=== PATIENT | male | born 1935 | race Caucasian/White ===

== ENCOUNTER 2016-12-29 11:21 | Outpatient (CLI) | payer MEDICARE, OTHER | END 2016-12-29 23:59 | DX: E11.9 Type 2 diabetes mellitus without complications (principal) ==

== ENCOUNTER 2017-01-09 | Outpatient (CLI) | payer SELFPAY | END 2017-01-09 03:15 | disposition EMS.NT | DX: R53.1 Weakness (principal) ==

== ENCOUNTER 2017-01-09 | Outpatient (CLI) | payer MEDICARE, BC, OTHER | END 2017-01-09 05:33 | disposition critical access hospital (66) | DX: R53.1 Weakness (principal) | CPT/HCPCS: A0425; A0427 ==

== ENCOUNTER 2017-01-09 06:00 | Inpatient (IN) | payer MEDICARE, BC ==
[2017-01-09] MEDS ORDERED: SODIUM CHLORIDE 0.9% 1,000 ML IV ONE ×2 (07:18→08:39)
[2017-01-09] MEDS ORDERED: FUROSEMIDE 40 MG/4 ML VIAL IVP STA (07:32)
[2017-01-09] MEDS ORDERED: FUROSEMIDE 40 MG/4 ML VIAL ONE (07:34)
[2017-01-09] MEDS: SODIUM CHLORIDE 0.9% 1,000 ML IV ONE ×2 (07:55→10:40)
[2017-01-09] MEDS ORDERED: SODIUM CHLORIDE FLUSH 0.9% 10 ML SYRINGE IVP PRN (08:39)
[2017-01-09] MEDS ORDERED: ACETAMINOPHEN 325 MG TABLET PO PRN (08:39)
[2017-01-09] MEDS ORDERED: PROCHLORPERAZINE 10 MG/2 ML VIAL IVP PRN (08:39)
[2017-01-09] MEDS ORDERED: ONDANSETRON 4 MG/2 ML VIAL IVP PRN (08:39)
[2017-01-09] MEDS ORDERED: DEXTROSE 5% 1,000 ML IV PRN (11:11)
[2017-01-09] MEDS ORDERED: DEXTROSE GEL 37.5 GM TUBE PO PRN (11:11)
[2017-01-09] MEDS ORDERED: DEXTROSE 50% ABBOJECT 25 GM/50 ML SYRINGE IVP PRN (11:11)
[2017-01-09] MEDS ORDERED: GLUCAGON 1 MG/ML VIAL SUBQ PRN (11:11)
[2017-01-09] MEDS: SODIUM BICARBONATE 150 MEQ in DEXTROSE 5% 1,000 ML IV SCH ×2 (12:13→21:28)
[2017-01-09] MEDS: INSULIN GLARGINE 300 UNIT/3 ML PEN SUBQ SCH ×2 (13:25→21:14)
[2017-01-09] MEDS: SODIUM CHLORIDE FLUSH 0.9% 10 ML SYRINGE IVP SCH ×2 (13:26→21:26)
[2017-01-09] MEDS: HEPARIN 5,000 UNIT/ML VIAL SUBQ SCH ×2 (13:26→21:15)
[2017-01-09] MEDS: INSULIN ASPART 300 UNIT/3 ML PEN SUBQ SCH ×3 (13:26→21:14)
[2017-01-09] MEDS: TAMSULOSIN 0.4 MG CAPSULE PO SCH (13:26)
[2017-01-09] MEDS: CALCIUM ACETATE 667 MG CAPSULE PO SCH ×2 (13:26→17:38)
[2017-01-09] MEDS: POLYETHYLENE GLYCOL 3350 17 GM PACKET PO SCH (13:36)
[2017-01-09] MEDS: LEVOTHYROXINE 75 MCG TABLET PO SCH (17:38)
[2017-01-09] MEDS: oxyCODONE 5 MG TABLET PO PRN (20:26)
[2017-01-10] MEDS: oxyCODONE 5 MG TABLET PO PRN ×3 (02:06→16:44)
[2017-01-10] MEDS: SODIUM CHLORIDE FLUSH 0.9% 10 ML SYRINGE IVP SCH ×3 (06:09→21:11)
[2017-01-10] MEDS ORDERED: LEVOTHYROXINE 25 MCG TABLET PO SCH (07:00)
[2017-01-10] MEDS: SODIUM CHLORIDE 0.9% 1,000 ML IV SCH ×2 (08:47→16:41)
[2017-01-10] MEDS: PANTOPRAZOLE 40 MG TABLET PO SCH (09:34)
[2017-01-10] MEDS: LEVOTHYROXINE 75 MCG TABLET PO SCH (09:34)
[2017-01-10] MEDS: INSULIN ASPART 300 UNIT/3 ML PEN SUBQ SCH ×4 (09:35→21:10)
[2017-01-10] MEDS: CALCIUM ACETATE 667 MG CAPSULE PO SCH ×3 (09:35→18:24)
[2017-01-10] MEDS: POLYETHYLENE GLYCOL 3350 17 GM PACKET PO SCH (09:36)
[2017-01-10] MEDS: TAMSULOSIN 0.4 MG CAPSULE PO SCH (09:37)
[2017-01-10] MEDS: HEPARIN 5,000 UNIT/ML VIAL SUBQ SCH ×2 (09:39→21:09)
[2017-01-10] MEDS: INSULIN GLARGINE 300 UNIT/3 ML PEN SUBQ SCH ×2 (09:44→21:09)
[2017-01-10] MEDS ORDERED: MIN OIL/DIMETHICON/COCONUT OIL 92 GM TUBE TOP ONE (14:13)
[2017-01-11] MEDS: SODIUM CHLORIDE 0.9% 1,000 ML IV SCH ×3 (00:42→17:07)
[2017-01-11] MEDS: oxyCODONE 5 MG TABLET PO PRN ×5 (00:42→21:30)
[2017-01-11] MEDS: LEVOTHYROXINE 75 MCG TABLET PO SCH (06:11)
[2017-01-11] MEDS: PANTOPRAZOLE 40 MG TABLET PO SCH (06:12)
[2017-01-11] MEDS: SODIUM CHLORIDE FLUSH 0.9% 10 ML SYRINGE IVP SCH ×3 (06:13→21:32)
[2017-01-11] MEDS: CALCIUM ACETATE 667 MG CAPSULE PO SCH ×3 (08:10→17:00)
[2017-01-11] MEDS: POLYETHYLENE GLYCOL 3350 17 GM PACKET PO SCH (08:11)
[2017-01-11] MEDS: DOCUSATE SODIUM 250 MG CAPSULE PO SCH (08:11)
[2017-01-11] MEDS: SENNA 8.6 MG TABLET PO SCH (08:11)
[2017-01-11] MEDS: TAMSULOSIN 0.4 MG CAPSULE PO SCH (08:11)
[2017-01-11] MEDS: INSULIN ASPART 300 UNIT/3 ML PEN SUBQ SCH ×4 (08:14→21:31)
[2017-01-11] MEDS: INSULIN GLARGINE 300 UNIT/3 ML PEN SUBQ SCH ×2 (08:15→21:32)
[2017-01-11] MEDS: HEPARIN 5,000 UNIT/ML VIAL SUBQ SCH ×2 (08:19→21:31)
[2017-01-12] MEDS: SODIUM CHLORIDE 0.9% 1,000 ML IV SCH ×2 (00:03→08:53)
[2017-01-12] MEDS: oxyCODONE 5 MG TABLET PO PRN (03:06)
[2017-01-12] MEDS: SODIUM CHLORIDE FLUSH 0.9% 10 ML SYRINGE IVP SCH (06:26)
[2017-01-12] MEDS: LEVOTHYROXINE 75 MCG TABLET PO SCH (06:43)
[2017-01-12] MEDS: PANTOPRAZOLE 40 MG TABLET PO SCH (06:43)
[2017-01-12] MEDS: INSULIN ASPART 300 UNIT/3 ML PEN SUBQ SCH (08:25)
[2017-01-12] MEDS: DOCUSATE SODIUM 250 MG CAPSULE PO SCH (08:44)
[2017-01-12] MEDS: CALCIUM ACETATE 667 MG CAPSULE PO SCH (08:44)
[2017-01-12] MEDS: POLYETHYLENE GLYCOL 3350 17 GM PACKET PO SCH (08:51)
[2017-01-12] MEDS: SENNA 8.6 MG TABLET PO SCH (08:51)
[2017-01-12] MEDS: TAMSULOSIN 0.4 MG CAPSULE PO SCH (08:52)
[2017-01-12] MEDS: HEPARIN 5,000 UNIT/ML VIAL SUBQ SCH (08:54)
[2017-01-12] MEDS ORDERED: MAGNESIUM HYDROXIDE 2,400 MG/30 ML UDC PO ONE (09:00)
[2017-01-12] MEDS: INSULIN GLARGINE 300 UNIT/3 ML PEN SUBQ SCH (11:01)
== END 2017-01-12 15:50 | DRG 683 ==
DX: N17.9 Acute kidney failure, unspecified (principal); I10 Essential (primary) hypertension; E11.42 Type 2 diabetes mellitus with diabetic polyneuropathy; Z79.84 Long term (current) use of oral hypoglycemic drugs; E87.2 Acidosis; E83.39 Other disorders of phosphorus metabolism; E11.22 Type 2 diabetes mellitus with diabetic chronic kidney disease; I12.9 Hypertensive chronic kidney disease with stage 1 through stage 4 chronic kidney disease, or unspecified chronic kidney disease; E03.9 Hypothyroidism, unspecified; I48.91 Unspecified atrial fibrillation; R94.5 Abnormal results of liver function studies; Z85.6 Personal history of leukemia; Z92.21 Personal history of antineoplastic chemotherapy; Z85.038 Personal history of other malignant neoplasm of large intestine; E78.1 Pure hyperglyceridemia; N18.2 Chronic kidney disease, stage 2 (mild); Z79.4 Long term (current) use of insulin; Z87.891 Personal history of nicotine dependence

== ENCOUNTER 2017-01-12 | Outpatient (CLI) | payer MEDICARE, BC | END 2017-01-12 15:52 | DX: Z74.01 Bed confinement status (principal) | CPT/HCPCS: A0425; A0429 ==

== ENCOUNTER 2017-03-16 12:00 | Outpatient (CLI) | payer BC, MEDICARE, OTHER | END 2017-03-16 12:01 | DX: N39.0 Urinary tract infection, site not specified (principal) ==

== ENCOUNTER 2017-05-25 13:00 | Outpatient (CLI) | payer MEDICARE ==
[2017-05-25 18:48] LABS: HGB - HEMOGLOBIN 10.3 g/dL (14.0-18.0); MEAN CORPUSCULAR HEMOGLOBIN 28.5 pg (27.0-31.0); MEAN CORPUSCULAR HGB CONC 33.3 g/dL (32.0-36.0); MEAN CORPUSCULAR VOLUME 85.4 fL (80.0-94.0); MEAN PLATELET VOLUME 7.2 fL (7.4-11.4); RED BLOOD COUNT 3.63 10^6/uL (4.70-6.10); RED CELL DISTRIBUTION WIDTH 17.9 % (12.0-15.0); WHITE BLOOD COUNT 4.1 x10^3/uL (4.8-10.8)
[2017-05-25 18:58] LABS: CALCIUM 8.7 mg/dL (8.5-10.3); CREATININE 1.1 mg/dL (0.6-1.2); POTASSIUM 4.2 mmol/L (3.5-5.0)
== END 2017-05-25 13:01 ==
LOC: LAB.F 13:00
PROVIDERS: ATTEND Internal Medicine
DX: L03.119 Cellulitis of unspecified part of limb (principal)
CPT/HCPCS: 80048

== ENCOUNTER 2017-09-02 18:00 | Outpatient (CLI) | payer MEDICARE | END 2017-09-02 18:01 | disposition critical access hospital (66) | LOC: EMS 18:00 | PROVIDERS: ATTEND Surgery | DX: L97.519 Non-pressure chronic ulcer of other part of right foot with unspecified severity (principal) | CPT/HCPCS: A0425; A0429 ==

== ENCOUNTER 2017-09-02 18:24 | Emergency (ER) | payer MEDICARE ==
--- NOTE | 2017-09-02 19:42 | XRAY Preliminary Report ---
Exam: XR FOOT 2 VIEW BILAT IMPRESSION: 1. No acute fracture. 2. Normal alignment. 3. No radiographic findings concerning for osteomyelitis. 4. Diffuse soft tissue swelling. No radiopaque foreign bodies. [facility] SITE ID: [id number]
[2017-09-02 19:49] LABS: BASOPHILS % (AUTO) 0.5 %; EOSINOPHILS # (AUTO) 0.1 10^3/uL (0.0-0.7); EOSINOPHILS % (AUTO) 2.7 %; HCT - HEMATOCRIT 31.7 % (42.0-52.0); HGB - HEMOGLOBIN 10.7 g/dL (14.0-18.0); LYMPHOCYTES # (AUTO) 0.8 10^3/uL (1.5-3.5); MEAN CORPUSCULAR HEMOGLOBIN 28.2 pg (27.0-31.0); MEAN CORPUSCULAR HGB CONC 33.9 g/dL (32.0-36.0); MEAN CORPUSCULAR VOLUME 83.2 fL (80.0-94.0); MEAN PLATELET VOLUME 6.9 fL (7.4-11.4); MONOCYTES # (AUTO) 0.4 10^3/uL (0.0-1.0); MONOCYTES % (AUTO) 10.4 %; NEUTROPHILS # (AUTO) 2.8 10^3/uL (1.5-6.6); NEUTROPHILS % (AUTO) 66.4 %; NUCLEATED RED BLOOD CELLS AUTO 0.1 /100WBC; RED BLOOD COUNT 3.81 10^6/uL (4.70-6.10); RED CELL DISTRIBUTION WIDTH 17.9 % (12.0-15.0); UNCORRECTED WHITE BLOOD COUNT 4.2 x10^3/uL; WHITE BLOOD COUNT 4.2 x10^3/uL (4.8-10.8)
--- NOTE | 2017-09-02 19:50 | XRAY Report ---
EXAMS: 1. RIGHT FOOT RADIOGRAPHY 2. LEFT FOOT RADIOGRAPHY EXAM DATE: 09/02/2017 07:20 p.m. CLINICAL HISTORY: Bilateral toe ulcerations, diabetic male. COMPARISON: None. TECHNIQUE: 2 views each foot. FINDINGS: Right: Bones: Normal. No fractures or bone lesions. Joints: Normal. No subluxations. Soft Tissues: Diffuse soft tissue swelling in the right foot. No radiopaque foreign bodies or subcuta neous emphysema. Patient's known ulcers are poorly visible. Possible ulcer at the distal portions of the right second toe. Left: Bones: No destructive osseous changes. Small plantar calcaneal spur. Joints: Normal. No subluxations. Soft Tissues: Diffuse soft tissue swelling throughout the left foot. No radiopaque foreign bodies or subcutaneous emphysema. IMPRESSION: 1. No acute fracture. 2. Normal alignment. 3. No radiographic findings concerning for osteomyelitis. 4. Diffuse soft tissue swelling. No radiopaque foreign bodies. [facility] Referring Provider Line: [phone] SITE ID: [id number]
[2017-09-02] MEDS ORDERED: SULFAMETH/TRIMETH DS 800/160 MG TABLET PO STA (19:53)
[2017-09-02] MEDS ORDERED: cefTRIAXone 1 GM VIAL IVP STA (19:53)
--- NOTE | 2017-09-02 19:55 | ED Physician Documentation ---
History of Present Illness - Stated complaint Stated Complaint: ULCERATED FEET - Chief complaint Chief Complaint: Wound - History obtained from History obtained from: Patient, EMS - History of Present Illness Timing: Chronic Pain level max: 0 Pain level now: 0 Improved by: nothing Worsened by: nothing - Additonal information Additional information: Patient is an 81-year-old male who presents to the emergency department after being sent in by his home health nurse. She is treating him for diabetic foot wounds and is concerned about his right second and third toes. States that they are more swollen than usual. No fevers. No chills. No vomiting. No dyspnea. Is not currently on antibiotics. Review of Systems Constitutional: denies: Fever, Chills Nose: denies: Rhinorrhea / runny nose, Congestion Throat: denies: Sore throat Cardiac: denies: Chest pain / pressure Respiratory: denies: Cough GI: denies: Abdominal Pain, Vomiting, Diarrhea Skin: denies: Rash Musculoskeletal: denies: Neck pain, Back pain Neurologic: denies: Focal weakness, Numbness, Headache PD PAST MEDICAL HISTORY - Past Medical History Past Medical History: Yes Cardiovascular: Hypertension, High cholesterol, Other Respiratory: Shortness of breath Neuro: Dementia, Peripheral neuropathy, Tremors Endocrine/Autoimmune: Type 2 diabetes, HyPOthyroidism GI: GERD : None HEENT: Chronic vision loss, Glaucoma, Chronic hearing loss Psych: None Musculoskeletal: None Derm: None - Past Surgical History Past Surgical History: Yes General: Appendectomy, Gastric surgery, Colonoscopy HEENT: Cataracts, Tonsil/Adenoidectomy - Present Medications Home Medications: Ambulatory Orders Medication Instructions Recorded Confirmed Fenofibrate [Tricor] 48 mg PO QD 05/31/13 01/09/17 Levothyroxine Sodium [Levoxyl] 75 mcg PO QDAC 06/18/16 01/09/17 Terazosin HCl 4 mg PO QPM 06/18/16 01/09/17 Atorvastatin Calcium [Lipitor] 80 mg PO QPM 01/10/17 01/10/17 Colchicine [Colchicine] 1.2 mg PO DAILY 01/10/17 01/10/17 Furosemide [Furosemide] 20 mg PO DAILY 01/10/17 01/10/17 Insulin Glargine [Lantus Solostar] 25 units SUBQ BID 01/10/17 01/10/17 Potassium Chloride [Klor-Con 10] 10 meq PO DAILY 01/10/17 01/10/17 Atorvastatin [Lipitor] 20 mg PO DAILY 09/02/17 09/02/17 Cephalexin [Keflex] 500 mg PO Q6HR #28 capsule 09/02/17 Insulin Aspart [NovoLOG] 09/02/17 Sulfamethox/Trimeth 800/160 1 each PO BID #14 tablet 09/02/17 [Bactrim Ds 800/160] Vit D 09/02/17 - Allergies Allergies/Adverse Reactions: Allergies Allergy/AdvReac Type Severity Reaction Status Date / Time iodine Allergy Rash Verified 09/02/17 18:35 andrographic paniculata Allergy Rash Uncoded 09/02/17 18:35 - Social History Does the pt smoke?: No Smoking Status: Never smoker Does the pt drink ETOH?: Yes Does the pt have substance abuse?: No - POLST Patient has POLST: No PD ED PE NORMAL - Vitals Vital signs reviewed: Yes - General General: Alert and oriented X 3, No acute distress - HEENT HEENT: Moist mucous membranes - Neck Neck: Supple, no meningeal sign - Cardiac Cardiac: RRR, Strong equal pulses - Respiratory Respiratory: No respiratory distress, Clear bilaterally - Abdomen Abdomen: Soft, Non tender, Non distended - Derm Derm: Warm and dry - Extremities Extremities: Other (Bilateral lower extremities are edematous, mild erythema and wounds to the dorsum of the right second and third toe. Vascularly intact, though neuropathy to bilateral lower extremity) - Neuro Neuro: Alert and oriented X 3 - Psych Psych: Normal mood, Normal affect Results - Vitals Vitals: Vital Signs - 24 hr 09/02/17 09/02/17 09/02/17 18:24 20:11 21:05 Temperature 36.8 C 37.2 C 36.8 C Heart Rate 110 H 96 88 Respiratory 22 18 18 Rate Blood Pressure 164/75 H 157/76 H 158/68 H O2 Saturation 95 98 97 Oxygen O2 Source Room air - Labs Labs: Laboratory Tests 09/02/17 09/02/17 09/02/17 19:30 19:30 19:30 WBC 4.2 L RBC 3.81 L Hgb 10.7 L Hct 31.7 L MCV 83.2 MCH 28.2 MCHC 33.9 RDW 17.9 H Plt Count 112 L MPV 6.9 L Neut # 2.8 Lymph # 0.8 L [place] # 0.4 Eos # 0.1 Baso # 0.0 Absolute Nucleated RBC 0.00 Nucleated RBC % 0.1 ESR 30 H Sodium 139 Potassium 3.6 Chloride 103 Carbon Dioxide 28 Anion Gap 8.0 BUN 15 Creatinine 1.2 Estimated GFR (MDRD) 58 L Glucose 102 H Calcium 8.6 Total Bilirubin 1.6 H AST < 10 L ALT < 10 L Alkaline Phosphatase 50 C-Reactive Protein 1.8 H Total Protein 5.5 L Albumin 3.1 L Globulin 2.4 Albumin/Globulin Ratio 1.3 Lipase 19 L - Rads (name of study) Bilateral foot x-ray Radiology: Prelim report reviewed, EMP read contemporaneously, See rad report ( No acute fracture. Normal alignment. No radiographic findings concerning for osteomyelitis. Diffuse soft tissue swelling. No radiopaque foreign bodies. ) PD MEDICAL DECISION MAKING - ED course Complexity details: reviewed results, re-evaluated patient, considered differential, d/w patient ED course: Patient is an 81-year-old male who appears to have cellulitis to the second and third toes, given Rocephin and Bactrim here. Will place on antibiotics for home. No evidence of osteomyelitis. No fevers. No sepsis. Patient is very well-appearing, nontoxic. Patient and family counseled regarding signs and symptoms for which I believe and urgent re-evaluation would be necessary. Patient with good understanding of and agreement to plan and is comfortable going home at this time This document was made in part using voice recognition software. While efforts are made to proofread this document, sound alike and grammatical errors may occur. Departure - Departure Disposition: 01 Home, Self Care Clinical Impression: Cellulitis Qualifiers: Site of cellulitis: extremity Site of cellulitis of extremity: toe Laterality: right Qualified Code(s): L03.031 - Cellulitis of right toe Diabetic foot ulcer Qualifiers: Diabetic foot ulcer location: unspecified part of foot Diabetes mellitus type: type 2 Laterality: right Non-pressure ulcer stage: limited to breakdown of skin Qualified Code(s): E11.621 - Type 2 diabetes mellitus with foot ulcer Condition: Good Instructions: ED Infec Skin Cellulitis Follow-Up: Rodrigo Van MD [Primary Care Provider] - Within 1 week Prescriptions: Cephalexin [Keflex] 500 mg PO Q6HR #28 capsule Sulfamethox/Trimeth 800/160 [Bactrim Ds 800/160] 1 each PO BID #14 tablet Comments: hold your potassium until finished with the antibiotics. Return if you worsen. Follow up with Dr. Van for further care. Discharge Date/Time: 09/02/17 21:06
[2017-09-02] MEDS ORDERED: cefTRIAXone 1 GM VIAL ONE (20:06)
[2017-09-02] MEDS ORDERED: SULFAMETH/TRIMETH DS 800/160 MG TABLET PO ONE (20:07)
[2017-09-02 20:19] LABS: ALBUMIN/GLOBULIN RATIO 1.3 (1.0-2.2); BILIRUBIN,TOTAL 1.6 mg/dL (0.2-1.0); BUN - BLOOD UREA NITROGEN 15 mg/dL (6-20); CALCIUM 8.6 mg/dL (8.5-10.3); CARBON DIOXIDE - CO2 28 mmol/L (21-32); CHLORIDE 103 mmol/L (101-111); CREATININE 1.2 mg/dL (0.6-1.2); GFR - MDRD 58 (>89); GLUCOSE 102 mg/dL (70-100); LIPASE 19 U/L (22-51); POTASSIUM 3.6 mmol/L (3.5-5.0); SODIUM 139 mmol/L (135-145); TOTAL PROTEIN 5.5 g/dL (6.7-8.2)
[2017-09-02 21:06] VITALS: BP 158/68
== END 2017-09-02 21:06 | disposition home or self-care (01) ==
LOC: EDUNIT# → ED 18:24
DX: L03.031 Cellulitis of right toe (principal); E11.621 Type 2 diabetes mellitus with foot ulcer; E11.42 Type 2 diabetes mellitus with diabetic polyneuropathy; I10 Essential (primary) hypertension; E78.00 Pure hypercholesterolemia, unspecified; E03.9 Hypothyroidism, unspecified; F03.90 Unspecified dementia, unspecified severity, without behavioral disturbance, psychotic disturbance, mood disturbance, and anxiety; Z79.4 Long term (current) use of insulin
CPT/HCPCS: 36415; 73620; 80053; 83690; 85025; 85651; 86140; 96374; 99284; A9270

== ENCOUNTER 2017-12-06 08:00 | Outpatient (CLI) | payer MEDICARE ==
[2017-12-06 17:25] LABS: BASOPHILS % (AUTO) 0.4 %; EOSINOPHILS # (AUTO) 0.1 10^3/uL (0.0-0.7); EOSINOPHILS % (AUTO) 2.8 %; HGB - HEMOGLOBIN 10.7 g/dL (14.0-18.0); LYMPHOCYTES # (AUTO) 0.6 10^3/uL (1.5-3.5); LYMPHOCYTES % (AUTO) 20.3 %; MEAN CORPUSCULAR HGB CONC 33.5 g/dL (32.0-36.0); MEAN CORPUSCULAR VOLUME 83.5 fL (80.0-94.0); MEAN PLATELET VOLUME 6.9 fL (7.4-11.4); MONOCYTES # (AUTO) 0.2 10^3/uL (0.0-1.0); MONOCYTES % (AUTO) 7.3 %; NEUTROPHILS % (AUTO) 69.2 %; PLT - PLATELET COUNT 120 10^3/uL (130-450); RED BLOOD COUNT 3.84 10^6/uL (4.70-6.10); RED CELL DISTRIBUTION WIDTH 17.8 % (12.0-15.0)
[2017-12-06 17:54] LABS: HB2 TOTAL 11.4 g/dL; HEMOGLOBIN A1C 0.33 g/dL; HEMOGLOBIN A1C % 4.8 % (4.6-6.2)
[2017-12-06 18:55] LABS: ALBUMIN 3.5 g/dL (3.2-5.5); ALBUMIN/GLOBULIN RATIO 1.7 (1.0-2.2); ALKALINE PHOSPHATASE 37 IU/L (42-121); ALT ALANINE AMINOTRANSFERASE < 10 IU/L (10-60); AST ASPARTATE AMINOTRANSFERASE < 10 IU/L (10-42); BILIRUBIN,TOTAL 1.3 mg/dL (0.2-1.0); BUN - BLOOD UREA NITROGEN 24 mg/dL (6-20); CALCIUM 8.7 mg/dL (8.5-10.3); CARBON DIOXIDE - CO2 25 mmol/L (21-32); CHLORIDE 105 mmol/L (101-111); CREATININE 1.3 mg/dL (0.6-1.2); GFR - MDRD 53 (>89); GLUCOSE 152 mg/dL (70-100); PREALBUMIN 21 mg/dL (18-45); SODIUM 136 mmol/L (135-145); TOTAL PROTEIN 5.6 g/dL (6.7-8.2)
== END 2017-12-06 08:01 | disposition home or self-care (01) ==
LOC: LAB.R 08:00
PROVIDERS: ATTEND Internal Medicine
DX: E46 Unspecified protein-calorie malnutrition (principal); E11.9 Type 2 diabetes mellitus without complications
CPT/HCPCS: 80053; 83036; 84134; 85025

== ENCOUNTER 2017-12-29 12:10 | Outpatient (CLI) | payer MEDICARE | END 2017-12-29 12:11 | disposition home or self-care (01) | LOC: LAB.R 12:10 | PROVIDERS: ATTEND Internal Medicine | DX: L97.821 Non-pressure chronic ulcer of other part of left lower leg limited to breakdown of skin (principal) | CPT/HCPCS: 87070; 87205 ==

== ENCOUNTER 2018-03-14 08:00 | Outpatient (CLI) | payer MEDICARE ==
[2018-03-14 13:20] LABS: BILIRUBIN,URINE NEGATIVE (NEGATIVE); GLUCOSE, URINE (UA) NEGATIVE (NEGATIVE); KETONES,URINE (UA) NEGATIVE (NEGATIVE); LEUKOCYTE ESTERASE, URINE LARGE (NEGATIVE); NITRITE,URINE POSITIVE (NEGATIVE); OCCULT BLOOD,URINE LARGE (NEGATIVE); PROTEIN,URINE 30 mg/dL (NEGATIVE); UROBILINOGEN,URINE 0.2 (NORMAL) E.U./dL (NORMAL)
[2018-03-14 13:26] LABS: CLARITY,URINE CLOUDY (CLEAR)
[2018-03-14 14:08] LABS: BACTERIA,URINE Moderate /HPF (None Seen); SQUAMOUS EPITHELIAL CELL,UR NONE SEEN (<= Few); WBC CLUMPS,URINE PRESENT
[2018-03-14 17:35] LABS: BASOPHILS % (AUTO) 0.3 %; EOSINOPHILS # (AUTO) 0.1 10^3/uL (0.0-0.7); EOSINOPHILS % (AUTO) 1.4 %; HGB - HEMOGLOBIN 11.5 g/dL (14.0-18.0); LYMPHOCYTES # (AUTO) 0.7 10^3/uL (1.5-3.5); LYMPHOCYTES % (AUTO) 14.6 %; MEAN CORPUSCULAR HEMOGLOBIN 28.6 pg (27.0-31.0); MEAN CORPUSCULAR HGB CONC 32.8 g/dL (32.0-36.0); MEAN CORPUSCULAR VOLUME 87.2 fL (80.0-94.0); MEAN PLATELET VOLUME 7.4 fL (7.4-11.4); MONOCYTES # (AUTO) 0.4 10^3/uL (0.0-1.0); MONOCYTES % (AUTO) 9.8 %; NEUTROPHILS # (AUTO) 3.4 10^3/uL (1.5-6.6); NEUTROPHILS % (AUTO) 73.9 %; PLT - PLATELET COUNT 127 10^3/uL (130-450); RED BLOOD COUNT 4.04 10^6/uL (4.70-6.10); RED CELL DISTRIBUTION WIDTH 18.9 % (12.0-15.0); WHITE BLOOD COUNT 4.5 x10^3/uL (4.8-10.8)
[2018-03-14 17:50] LABS: HB2 TOTAL 12.9 g/dL; HEMOGLOBIN A1C 0.39 g/dL; HEMOGLOBIN A1C % 4.9 % (4.6-6.2)
[2018-03-14 17:55] LABS: ALBUMIN 3.5 g/dL (3.2-5.5); ALBUMIN/GLOBULIN RATIO 1.3 (1.0-2.2); ALKALINE PHOSPHATASE 46 IU/L (42-121); ALT ALANINE AMINOTRANSFERASE 10 IU/L (10-60); AST ASPARTATE AMINOTRANSFERASE < 10 IU/L (10-42); BILIRUBIN,TOTAL 1.2 mg/dL (0.2-1.0); BUN - BLOOD UREA NITROGEN 35 mg/dL (6-20); CALCIUM 9.1 mg/dL (8.5-10.3); CARBON DIOXIDE - CO2 25 mmol/L (21-32); CHLORIDE 104 mmol/L (101-111); CREATININE 1.4 mg/dL (0.6-1.2); GFR - MDRD 49 (>89); GLUCOSE 143 mg/dL (70-100); SODIUM 138 mmol/L (135-145); TOTAL PROTEIN 6.2 g/dL (6.7-8.2)
== END 2018-03-14 08:01 ==
LOC: LAB.R 08:00
PROVIDERS: ATTEND Internal Medicine
DX: N39.0 Urinary tract infection, site not specified (principal); E11.9 Type 2 diabetes mellitus without complications
CPT/HCPCS: 80053; 81001; 81003; 83036; 85025; 87086

== ENCOUNTER 2019-02-16 12:26 | Outpatient (CLI) | payer MEDICARE, BC ==
[2019-02-16 13:08] LABS: BASOPHILS % (AUTO) 0.7 %; EOSINOPHILS % (AUTO) 0.1 %; LYMPHOCYTES # (AUTO) 0.8 10^3/uL (1.5-3.5); LYMPHOCYTES % (AUTO) 18.7 %; MEAN CORPUSCULAR HEMOGLOBIN 29.8 pg (27.0-31.0); MEAN CORPUSCULAR HGB CONC 33.7 g/dL (32.0-36.0); MEAN CORPUSCULAR VOLUME 88.5 fL (80.0-94.0); MONOCYTES # (AUTO) 0.6 10^3/uL (0.0-1.0); NEUTROPHILS # (AUTO) 2.8 10^3/uL (1.5-6.6); NEUTROPHILS % (AUTO) 66.5 %; PLT - PLATELET COUNT 113 10^3/uL (130-450); RED BLOOD COUNT 4.35 10^6/uL (4.70-6.10); RED CELL DISTRIBUTION WIDTH 17.4 % (12.0-15.0); WHITE BLOOD COUNT 4.3 x10^3/uL (4.8-10.8)
[2019-02-16 13:24] LABS: ALBUMIN 3.8 g/dL (3.2-5.5); ALBUMIN/GLOBULIN RATIO 1.5 (1.0-2.2); BILIRUBIN,TOTAL 2.5 mg/dL (0.2-1.0); CALCIUM 9.3 mg/dL (8.5-10.3); CREATININE 1.4 mg/dL (0.6-1.2); TOTAL PROTEIN 6.4 g/dL (6.7-8.2)
--- NOTE | 2019-02-16 13:51 | XRAY Report ---
Reason: PLEURAL EFFUSION Procedure Date: 02/16/2019 Accession Number: [id number] / [id number] Procedure: XR - Chest 2 View X-Ray CPT Code: 32224 FULL RESULT: EXAM: CHEST RADIOGRAPHY EXAM DATE: 02/16/2019 01:19 PM. CLINICAL HISTORY: Pleural effusion. COMPARISON: CHEST 2 VIEW PA/LAT 01/09/2017 7:32 AM. TECHNIQUE: 2 views. FINDINGS: Lungs/Pleura: No focal opacities evident. No appreciable pleural effusion. No pneumothorax. Low lung volumes. Mediastinum: Heart and mediastinal contours are unremarkable. Other: None. IMPRESSION: Low lung volumes similar to prior. No appreciable effusion. [facility]
[2019-02-16 13:57] LABS: THYROID STIMULATING HORMONE 5.57 uIU/mL (0.34-5.60)
[2019-02-16 13:59] LABS: FREE T4 (FREE THYROXINE) 1.1 ng/dL (0.58-1.64)
== END 2019-02-16 12:27 | disposition home or self-care (01) ==
LOC: DI 12:26
PROVIDERS: ATTEND Family Medicine
DX: J90 Pleural effusion, not elsewhere classified (principal); E11.9 Type 2 diabetes mellitus without complications; R06.02 Shortness of breath
CPT/HCPCS: 36415; 71046; 80053; 83880; 84439; 84443; 84481; 85025

== ENCOUNTER 2019-05-16 13:58 | Outpatient (CLI) | payer MEDICARE, BC ==
[2019-05-16 14:36] LABS: CALCIUM 8.8 mg/dL (8.5-10.3); CREATININE 1.3 mg/dL (0.6-1.2)
[2019-05-16 14:42] LABS: HB2 TOTAL 12.8 g/dL; HEMOGLOBIN A1C 0.56 g/dL; HEMOGLOBIN A1C % 6.2 % (4.6-6.2)
[2019-05-16 15:17] LABS: T4 (THYROXINE) 9.8 ug/dL (6.09-12.23)
[2019-05-16 15:21] LABS: THYROID STIMULATING HORMONE 6.62 uIU/mL (0.34-5.60)
== END 2019-05-16 13:59 | disposition home or self-care (01) ==
LOC: LAB 13:58
PROVIDERS: ATTEND Family Medicine
DX: E03.9 Hypothyroidism, unspecified (principal); I10 Essential (primary) hypertension; N31.9 Neuromuscular dysfunction of bladder, unspecified; E11.9 Type 2 diabetes mellitus without complications
CPT/HCPCS: 36415; 80048; 83036; 84436; 84443; 84481

== ENCOUNTER 2019-08-20 15:07 | Outpatient (CLI) | payer MEDICARE, BC ==
[2019-08-20 17:47] LABS: BASOPHILS % (AUTO) 0.4 %; EOSINOPHILS # (AUTO) 0.1 10^3/uL (0.0-0.7); EOSINOPHILS % (AUTO) 2.5 %; HGB - HEMOGLOBIN 10.8 g/dL (14.0-18.0); LYMPHOCYTES % (AUTO) 22.2 %; MEAN CORPUSCULAR HEMOGLOBIN 28.4 pg (27.0-31.0); MEAN CORPUSCULAR HGB CONC 31.1 g/dL (32.0-36.0); MEAN CORPUSCULAR VOLUME 91.3 fL (80.0-94.0); MEAN PLATELET VOLUME 9.3 fL (7.4-11.4); MONOCYTES # (AUTO) 0.4 10^3/uL (0.0-1.0); MONOCYTES % (AUTO) 9.6 %; NEUTROPHILS # (AUTO) 2.9 10^3/uL (1.5-6.6); NEUTROPHILS % (AUTO) 64.6 %; PLT - PLATELET COUNT 130 10^3/uL (130-450); RED CELL DISTRIBUTION WIDTH 17.3 % (12.0-15.0); WHITE BLOOD COUNT 4.5 x10^3/uL (4.8-10.8)
[2019-08-20 18:01] LABS: CALCIUM 8.7 mg/dL (8.5-10.3); CREATININE 1.5 mg/dL (0.6-1.2)
[2019-08-20 18:28] LABS: HB2 TOTAL 11.3 g/dL; HEMOGLOBIN A1C 0.43 g/dL; HEMOGLOBIN A1C % 5.6 % (4.6-6.2)
== END 2019-08-20 15:08 | disposition home or self-care (01) ==
LOC: LAB.S 15:07
PROVIDERS: ATTEND Family Medicine
DX: I87.2 Venous insufficiency (chronic) (peripheral) (principal); E03.9 Hypothyroidism, unspecified; I10 Essential (primary) hypertension; N31.9 Neuromuscular dysfunction of bladder, unspecified; E11.9 Type 2 diabetes mellitus without complications
CPT/HCPCS: 36415; 80048; 83036; 85025

== ENCOUNTER 2019-11-21 11:03 | Outpatient (CLI) | payer MEDICARE, BC ==
[2019-11-21 16:57] LABS: BASOPHILS % (AUTO) 0.3 %; EOSINOPHILS # (AUTO) 0.1 10^3/uL (0.0-0.7); EOSINOPHILS % (AUTO) 1.2 %; HGB - HEMOGLOBIN 11.4 g/dL (14.0-18.0); LYMPHOCYTES # (AUTO) 1.5 10^3/uL (1.5-3.5); LYMPHOCYTES % (AUTO) 16.7 %; MEAN CORPUSCULAR HEMOGLOBIN 27.2 pg (27.0-31.0); MEAN CORPUSCULAR HGB CONC 30.5 g/dL (32.0-36.0); MEAN CORPUSCULAR VOLUME 89.3 fL (80.0-94.0); MEAN PLATELET VOLUME 9.7 fL (7.4-11.4); MONOCYTES # (AUTO) 0.6 10^3/uL (0.0-1.0); MONOCYTES % (AUTO) 6.3 %; NEUTROPHILS # (AUTO) 6.6 10^3/uL (1.5-6.6); NEUTROPHILS % (AUTO) 74.3 %; PLT - PLATELET COUNT 262 10^3/uL (130-450); RED BLOOD COUNT 4.19 10^6/uL (4.70-6.10); RED CELL DISTRIBUTION WIDTH 15.1 % (12.0-15.0); WHITE BLOOD COUNT 8.9 x10^3/uL (4.8-10.8)
[2019-11-21 17:26] LABS: THYROID STIMULATING HORMONE 4.43 uIU/mL (0.34-5.60)
[2019-11-21 17:27] LABS: ALBUMIN 2.9 g/dL (3.2-5.5); ALKALINE PHOSPHATASE 50 IU/L (42-121); ALT ALANINE AMINOTRANSFERASE < 10 IU/L (10-60); AST ASPARTATE AMINOTRANSFERASE 10 IU/L (10-42); BILIRUBIN,TOTAL 1.1 mg/dL (0.2-1.0); BUN - BLOOD UREA NITROGEN 35 mg/dL (6-20); CALCIUM 8.8 mg/dL (8.5-10.3); CARBON DIOXIDE - CO2 25 mmol/L (21-32); CHLORIDE 106 mmol/L (101-111); CHOL/HDL RATIO 3.5 (<5.0); CHOLESTEROL 63 mg/dL; CREATININE 1.4 mg/dL (0.6-1.2); GFR - MDRD 48 (>89); GLUCOSE 128 mg/dL (70-100); HDL CHOLESTEROL 18 mg/dL; LDL CHOLESTEROL,CALCULATED 7 mg/dL; LDL/HDL RATIO 0.4 (<3.6); SODIUM 137 mmol/L (135-145); TOTAL PROTEIN 5.8 g/dL (6.7-8.2); VLDL CHOLESTEROL 38 mg/dL
[2019-11-21 17:28] LABS: FREE T4 (FREE THYROXINE) 1.16 ng/dL (0.58-1.64)
[2019-11-21 17:33] LABS: HB2 TOTAL 11.4 g/dL; HEMOGLOBIN A1C 0.47 g/dL; HEMOGLOBIN A1C % 5.9 % (4.6-6.2)
== END 2019-11-21 23:59 | disposition home or self-care (01) ==
LOC: LAB.R 11:03
PROVIDERS: ATTEND Family Medicine
DX: E11.22 Type 2 diabetes mellitus with diabetic chronic kidney disease (principal); N18.9 Chronic kidney disease, unspecified
CPT/HCPCS: 36415; 80053; 80061; 83036; 83721; 84439; 84443; 84481; 85025

== ENCOUNTER 2020-02-19 12:06 | Outpatient (CLI) | payer MEDICARE, BC | END 2020-02-19 12:07 | disposition short-term general hospital (02) | LOC: EMS 12:06 | PROVIDERS: ATTEND Surgery | DX: M25.551 Pain in right hip (principal); W07.XXXA Fall from chair, initial encounter; Y92.099 Unspecified place in other non-institutional residence as the place of occurrence of the external cause | CPT/HCPCS: A0425; A0429 ==

== ENCOUNTER 2020-04-05 19:16 | Outpatient (CLI) | payer MEDICARE, BC | END 2020-04-05 19:17 | disposition critical access hospital (66) | LOC: EMS 19:16 | PROVIDERS: ATTEND Surgery | DX: R50.9 Fever, unspecified (principal); R39.89 Other symptoms and signs involving the genitourinary system | CPT/HCPCS: A0425; A0429 ==

== ENCOUNTER 2020-04-05 19:42 | Emergency (ER) | payer MEDICARE, BC ==
--- NOTE | 2020-04-05 19:47 | ED Physician Documentation ---
History of Present Illness - Stated complaint Stated Complaint: HIGH BLOOD SUGAR/ ETOH - History obtained from History obtained from: EMS - History of Present Illness Timing: Today (84-year-old gentleman with dementia [facility]. Reportedly EMS was called today because of a high blood sugar, but it was only the glucometer at the assisted living facility that was reading high, 2 EMS glucometers were reading fairly normal. That said he did have a temperature of 100.0. He is recovering from a right hip surgery from a fracture. Reportedly was on antibiotics for this until today. Patient has no specific complaints.) Review of Systems Unable to obtain: Dementia PD PAST MEDICAL HISTORY - Past Medical History Cardiovascular: Hypertension, High cholesterol, Other Respiratory: Shortness of breath Endocrine/Autoimmune: Type 2 diabetes, HyPOthyroidism GI: GERD : None HEENT: Chronic vision loss, Glaucoma, Chronic hearing loss Psych: None Musculoskeletal: None Derm: None - Past Surgical History Past Surgical History: Yes General: Appendectomy, Gastric surgery, Colonoscopy HEENT: Cataracts, Tonsil/Adenoidectomy - Present Medications Home Medications: Ambulatory Orders Medication Instructions Recorded Confirmed Fenofibrate [Tricor] 48 mg PO QD 05/31/13 01/09/17 Levothyroxine Sodium [Levoxyl] 75 mcg PO QDAC 06/18/16 01/09/17 Terazosin HCl 4 mg PO QPM 06/18/16 01/09/17 Atorvastatin Calcium [Lipitor] 80 mg PO QPM 01/10/17 01/10/17 Colchicine 1.2 mg PO DAILY 01/10/17 01/10/17 Furosemide 20 mg PO DAILY 01/10/17 01/10/17 Insulin Glargine [Lantus Solostar] 25 units SUBQ BID 01/10/17 01/10/17 Potassium Chloride [Klor-Con 10] 10 meq PO DAILY 01/10/17 01/10/17 Atorvastatin [Lipitor] 20 mg PO DAILY 09/02/17 09/02/17 Cephalexin [Keflex] 500 mg PO Q6HR #28 capsule 09/02/17 Insulin Aspart [NovoLOG] 09/02/17 Sulfamethox/Trimeth 800/160 1 each PO BID #14 tablet 09/02/17 [Bactrim Ds 800/160] Vit D 09/02/17 Ciprofloxacin HCl [Cipro] 500 mg PO BID #20 tablet 04/05/20 - Allergies Allergies/Adverse Reactions: Allergies Allergy/AdvReac Type Severity Reaction Status Date / Time iodine Allergy Rash Verified 04/05/20 19:44 andrographic paniculata Allergy Rash Uncoded 04/05/20 19:44 - Social History Does the pt smoke?: No Smoking Status: Never smoker Does the pt drink ETOH?: Yes Does the pt have substance abuse?: No - POLST Patient has POLST: No PD ED PE NORMAL - Vitals Vital signs reviewed: Yes - General General: Other (He is alert and oriented to person and place but not time or events. He is tremulous but he says that is chronic. He does appear pale.) - HEENT HEENT: PERRL, EOMI - Neck Neck: Supple, no meningeal sign, No bony TTP - Cardiac Cardiac: RRR, No murmur - Respiratory Respiratory: No respiratory distress, Clear bilaterally - Abdomen Abdomen: Normal bowel sounds, Soft, Non tender - Back Back: Other (Right hip is nontender, the incision is clean dry and intact without any evidence of infection.) - Derm Derm: Normal color, Warm and dry - Extremities Extremities: No edema, No calf tenderness / cord - Neuro Neuro: No motor deficit, No sensory deficit Results - Vitals Vitals: Vital Signs - 24 hr 04/05/20 04/05/20 04/05/20 19:44 19:53 21:53 Temperature 37.6 C H 37.6 C H Heart Rate 100 86 66 Respiratory 16 21 16 Rate Blood Pressure 166/77 H 165/77 H 160/90 H O2 Saturation 94 98 99 04/05/20 23:00 Temperature 37.3 C Heart Rate 68 Respiratory 16 Rate Blood Pressure 140/88 H O2 Saturation 100 Oxygen O2 Source Room air - Labs Labs: Laboratory Tests 04/05/20 04/05/20 04/05/20 19:49 20:08 20:08 WBC 3.7 L RBC 3.96 L Hgb 11.7 L Hct 37.0 L MCV 93.4 MCH 29.5 MCHC 31.6 L RDW 16.2 H Plt Count 85 L MPV 9.8 Neut # (Auto) 2.6 Lymph # (Auto) 0.6 L [place] # (Auto) 0.4 Eos # (Auto) 0.0 Baso # (Auto) 0.0 Absolute Nucleated RBC 0.00 Nucleated RBC % 0.0 Sodium 137 Potassium 3.7 Chloride 103 Carbon Dioxide 27 Anion Gap 7.0 BUN 23 H Creatinine 1.1 Estimated GFR (MDRD) 64 L Glucose 108 H Lactic Acid Calcium 8.5 Total Bilirubin 7.2 H AST 97 H ALT 153 H Alkaline Phosphatase 290 H Total Protein 5.4 L Albumin 3.1 L Globulin 2.3 Albumin/Globulin Ratio 1.3 Lipase 24 Urine Color YELLOW Urine Clarity CLEAR Urine pH 7.0 Ur Specific [place] 1.015 Urine Protein 100 H Urine Glucose (UA) NEGATIVE Urine Ketones NEGATIVE Urine Occult Blood TRACE-LYSE Urine Nitrite NEGATIVE Urine Bilirubin MODERATE H Urine Urobilinogen 2 H Ur Leukocyte Esterase TRACE H Urine RBC 11-25 H Urine WBC >25 H Ur Squamous Epith Cells FEW Squamous Amorphous Sediment Rare Urine Bacteria Many H Urine Mucus Few Strands Ur Microscopic Review INDICATED Urine Culture Comments INDICATED 04/05/20 20:08 WBC RBC Hgb Hct MCV MCH MCHC RDW Plt Count MPV Neut # (Auto) Lymph # (Auto) [place] # (Auto) Eos # (Auto) Baso # (Auto) Absolute Nucleated RBC Nucleated RBC % Sodium Potassium Chloride Carbon Dioxide Anion Gap BUN Creatinine Estimated GFR (MDRD) Glucose Lactic Acid 1.0 Calcium Total Bilirubin AST ALT Alkaline Phosphatase Total Protein Albumin Globulin Albumin/Globulin Ratio Lipase Urine Color Urine Clarity Urine pH Ur Specific [place] Urine Protein Urine Glucose (UA) Urine Ketones Urine Occult Blood Urine Nitrite Urine Bilirubin Urine Urobilinogen Ur Leukocyte Esterase Urine RBC Urine WBC Ur Squamous Epith Cells Amorphous Sediment Urine Bacteria Urine Mucus Ur Microscopic Review Urine Culture Comments - Rads (name of study) CT A/P Radiology: EMP read contemporaneously (cholelithiasis and gallbladder wall thickening without pericholecystic fluid. No ductal dilatation. Splenomegaly. Known renal cysts.) PD MEDICAL DECISION MAKING - ED course ED course: 84-year-old gentleman with dementia and multiple medical issues presents by ambulance because of presumed hyperglycemia at the assisted living facility, But with borderline fever here. Blood work shows an obstructive pattern for the biliary system and this was followed by CT showing gallstones and wall thickening but no pericholecystic fluid. I discussed by phone with his POA, oKmal Cesar, discussed that if we were to treat this aggressively he would need transfer to a facility capable of the ERCP or MRCP. She did not feel like this was in his best interest given current goals of care and would like to trial antibiotics and watchful waiting. I wrote an email to his primary care physician as he would benefit potentially from repeat blood work in a couple of days to see what his liver enzymes are doing. Also has evidence of potential UTI treated with Rocephin here in [place] to go which should cover the biliary system too Departure - Departure Disposition: 01 Home, Self Care Clinical Impression: Cholecystitis T2DM (type 2 diabetes mellitus) Qualifiers: Diabetes mellitus alf insulin use: unspecified family services assistant insulin use status Diabetes mellitus complication status: with other specified complication Qualified Code(s): E11.69 - Type 2 diabetes mellitus with other specified complication Catheter-associated urinary tract infection Qualifiers: Indwelling urinary catheter type: indwelling urethral catheter Encounter type: initial encounter Qualified Code(s): T83.511A - Infection and inflammatory reaction due to indwelling urethral catheter, initial encounter Condition: Good Record reviewed to determine appropriate education?: Yes Instructions: Gallstones Dc, ED UTI Cystitis Male Prescriptions: Ciprofloxacin HCl [Cipro] 500 mg PO BID #20 tablet Comments: Please have him return anytime if worse or if the goals of care change. I did write a email to his primary care physician, he probably should have repeat blood work in a few days to reassess the potential biliary obstructive pattern. Discharge Date/Time: 04/05/20 23:08
[2020-04-05 20:12] LABS: GLUCOSE, URINE (UA) NEGATIVE (NEGATIVE); KETONES,URINE (UA) NEGATIVE (NEGATIVE); LEUKOCYTE ESTERASE, URINE TRACE (NEGATIVE); NITRITE,URINE NEGATIVE (NEGATIVE); OCCULT BLOOD,URINE TRACE-LYSE (NEGATIVE); PROTEIN,URINE 100 mg/dL (NEGATIVE); UROBILINOGEN,URINE 2 E.U./dL (NORMAL)
[2020-04-05 20:14] LABS: BASOPHILS % (AUTO) 0.3 %; EOSINOPHILS % (AUTO) 0.5 %; HGB - HEMOGLOBIN 11.7 g/dL (14.0-18.0); LYMPHOCYTES # (AUTO) 0.6 10^3/uL (1.5-3.5); LYMPHOCYTES % (AUTO) 16.2 %; MEAN CORPUSCULAR HEMOGLOBIN 29.5 pg (27.0-31.0); MEAN CORPUSCULAR HGB CONC 31.6 g/dL (32.0-36.0); MEAN CORPUSCULAR VOLUME 93.4 fL (80.0-94.0); MEAN PLATELET VOLUME 9.8 fL (7.4-11.4); MONOCYTES # (AUTO) 0.4 10^3/uL (0.0-1.0); MONOCYTES % (AUTO) 12.1 %; NEUTROPHILS # (AUTO) 2.6 10^3/uL (1.5-6.6); NEUTROPHILS % (AUTO) 70.4 %; PLT - PLATELET COUNT 85 10^3/uL (130-450); RED BLOOD COUNT 3.96 10^6/uL (4.70-6.10); RED CELL DISTRIBUTION WIDTH 16.2 % (12.0-15.0); WHITE BLOOD COUNT 3.7 x10^3/uL (4.8-10.8)
[2020-04-05 20:16] LABS: BILIRUBIN,URINE MODERATE (NEGATIVE); CLARITY,URINE CLEAR (CLEAR); ICTOTEST,URINE POSITIVE
--- NOTE | 2020-04-05 20:25 | XRAY Report ---
Reason: fever Procedure Date: 04/05/2020 Accession Number: [id number] / [id number] Procedure: XR - Chest 1 View X-Ray CPT Code: 46500 Final Report FULL RESULT: EXAM: CHEST RADIOGRAPHY EXAM DATE: 04/05/2020 08:15 PM. CLINICAL HISTORY: Fever. COMPARISON: CHEST 2 VIEW 02/16/2019 1:19 PM. TECHNIQUE: 1 view. FINDINGS: Lungs/Pleura: No focal opacities evident. No pleural effusion. No pneumothorax. Mediastinum: Within exam limitations, the cardiomediastinal contour is normal. Other: None. IMPRESSION: Normal single view chest. [facility]
[2020-04-05 20:27] LABS: ALBUMIN 3.1 g/dL (3.2-5.5); ALBUMIN/GLOBULIN RATIO 1.3 (1.0-2.2); BILIRUBIN,TOTAL 7.2 mg/dL (0.2-1.0); CALCIUM 8.5 mg/dL (8.5-10.3); CREATININE 1.1 mg/dL (0.6-1.2); TOTAL PROTEIN 5.4 g/dL (6.7-8.2)
[2020-04-05 20:29] LABS: AMORPHOUS SEDIMENT,UR Rare /LPF; BACTERIA,URINE Many /HPF (None Seen); MUCUS,URINE Few Strands; SQUAMOUS EPITHELIAL CELL,UR FEW Squamous (<= Few)
[2020-04-05] MEDS ORDERED: cefTRIAXone 2 GM in SODIUM CHLORIDE 0.9% MINIBAG 100 ML IV STA (20:58)
[2020-04-05] MEDS ORDERED: IOVERSOL 320 100 ML VIAL IVP ONE ×2 (21:31→22:11)
--- NOTE | 2020-04-05 22:29 | CT Report ---
Reason: painless jaundice Procedure Date: 04/05/2020 Accession Number: [id number] / [id number] Procedure: CT - Abdomen/Pelvis W CPT Code: Final Report FULL RESULT: EXAM: CT ABDOMEN AND PELVIS EXAM DATE: 04/05/2020 09:52 PM. CLINICAL HISTORY: Painless jaundice. COMPARISONS: ABDOMEN W/WO 06/23/2015 2:00 PM. TECHNIQUE: Routine helical CT imaging was performed through the abdomen and pelvis. IV contrast: Optiray 320. Enteric contrast: No. Reconstructions: Coronal and sagittal. In accordance with CT protocol optimization, one or more of the following dose reduction techniques were utilized for this exam: automated exposure control, adjustment of mA and/or KV based on patient size, or use of iterative reconstructive technique. FINDINGS: Lung Bases: There is a small left-sided pleural effusion. Liver: Normal. No masses. Gallbladder/Bile Ducts: There are innumerable gallstones within the gallbladder. There is slight gallbladder wall thickening. There is no pericholecystic fluid. There is no significant intra-nor extrahepatic biliary ductal dilatation. Spleen: The spleen is enlarged measuring 19 cm superiorly inferiorly, 14.4 cm anterior posteriorly, and 13.7 cm transversely. Pancreas: Normal. Adrenal Glands: Normal. Kidneys: The kidneys are normally positioned. There is moderate atrophy. There are multiple bilateral renal cysts. No hydronephrosis. Peritoneal Cavity/Bowel: Normal. No free fluid, free air or adenopathy. No masses or acute inflammatory process. There is no bowel obstruction. There are no inflammatory changes of the colon. Pelvic Organs: Disla balloon catheter is decompressing the urinary bladder. Vasculature: No aneurysms or other significant abnormality. Bones: No significant abnormality. Other: None. IMPRESSION: 1. Cholelithiasis and gallbladder wall thickening. No pericholecystic fluid. 2. No intra-nor extra hepatic biliary ductal dilatation. 3. Splenomegaly. 4. Multiple small bilateral renal cysts. These cysts are similar to the prior MRI exam. [facility]
[2020-04-05 23:08] VITALS: BP 140/88
== END 2020-04-05 23:08 | disposition home or self-care (01) ==
LOC: EDUNIT# → ED 19:42
DX: K80.10 Calculus of gallbladder with chronic cholecystitis without obstruction (principal); T83.511A Infection and inflammatory reaction due to indwelling urethral catheter, initial encounter; Y84.6 Urinary catheterization as the cause of abnormal reaction of the patient, or of later complication, without mention of misadventure at the time of the procedure; Z98.890 Other specified postprocedural states; E11.9 Type 2 diabetes mellitus without complications; Z79.4 Long term (current) use of insulin; I10 Essential (primary) hypertension; F03.90 Unspecified dementia, unspecified severity, without behavioral disturbance, psychotic disturbance, mood disturbance, and anxiety; N28.1 Cyst of kidney, acquired; R16.1 Splenomegaly, not elsewhere classified
CPT/HCPCS: 36415; 71045; 74177; 80053; 81001; 83605; 83690; 85025; 87040; 87077; 87086; 87181; 96365; 99284; 99285; Q9967; 81003

== ENCOUNTER 2020-04-09 08:00 | Outpatient (CLI) | payer MEDICARE, BC ==
[2020-04-09 13:35] LABS: BASOPHILS % (AUTO) 0.2 %; EOSINOPHILS # (AUTO) 0.2 10^3/uL (0.0-0.7); EOSINOPHILS % (AUTO) 3.8 %; HGB - HEMOGLOBIN 13.4 g/dL (14.0-18.0); LYMPHOCYTES # (AUTO) 0.6 10^3/uL (1.5-3.5); LYMPHOCYTES % (AUTO) 15.1 %; MEAN CORPUSCULAR HEMOGLOBIN 27.9 pg (27.0-31.0); MEAN CORPUSCULAR HGB CONC 30.2 g/dL (32.0-36.0); MEAN CORPUSCULAR VOLUME 92.1 fL (80.0-94.0); MEAN PLATELET VOLUME 11.2 fL (7.4-11.4); MONOCYTES # (AUTO) 0.3 10^3/uL (0.0-1.0); MONOCYTES % (AUTO) 7.9 %; NEUTROPHILS % (AUTO) 72.5 %; PLT - PLATELET COUNT 149 10^3/uL (130-450); RED BLOOD COUNT 4.81 10^6/uL (4.70-6.10); RED CELL DISTRIBUTION WIDTH 16.2 % (12.0-15.0); WHITE BLOOD COUNT 4.2 x10^3/uL (4.8-10.8)
[2020-04-09 13:41] LABS: ALBUMIN 2.9 g/dL (3.2-5.5); ALKALINE PHOSPHATASE 581 IU/L (42-121); ALT ALANINE AMINOTRANSFERASE 77 IU/L (10-60); AST ASPARTATE AMINOTRANSFERASE 40 IU/L (10-42); BILIRUBIN,TOTAL 5.8 mg/dL (0.2-1.0); BUN - BLOOD UREA NITROGEN 53 mg/dL (6-20); CALCIUM 8.7 mg/dL (8.5-10.3); CARBON DIOXIDE - CO2 22 mmol/L (21-32); CHLORIDE 101 mmol/L (101-111); CHOL/HDL RATIO 13.9 (<5.0); CHOLESTEROL 97 mg/dL; CREATININE 2.9 mg/dL (0.6-1.2); GLUCOSE 85 mg/dL (70-100); HDL CHOLESTEROL 7 mg/dL; LDL CHOLESTEROL,CALCULATED 42 mg/dL; SODIUM 135 mmol/L (135-145); TOTAL PROTEIN 5.7 g/dL (6.7-8.2); VLDL CHOLESTEROL 48 mg/dL
[2020-04-09 13:42] LABS: HB2 TOTAL 14.1 g/dL; HEMOGLOBIN A1C 0.36 g/dL; HEMOGLOBIN A1C % 4.5 % (4.6-6.2)
[2020-04-09 13:45] LABS: THYROID STIMULATING HORMONE 7.29 uIU/mL (0.34-5.60)
[2020-04-09 13:46] LABS: FREE T3 1.98 pg/mL (2.5-3.9)
[2020-04-09 13:47] LABS: FREE T4 (FREE THYROXINE) 0.75 ng/dL (0.58-1.64)
== END 2020-04-09 23:59 | disposition home or self-care (01) ==
LOC: LAB.WCP 08:00
PROVIDERS: ATTEND Family Medicine
DX: E80.6 Other disorders of bilirubin metabolism (principal); E78.00 Pure hypercholesterolemia, unspecified; E03.9 Hypothyroidism, unspecified; I10 Essential (primary) hypertension; N31.9 Neuromuscular dysfunction of bladder, unspecified; E11.9 Type 2 diabetes mellitus without complications; J32.9 Chronic sinusitis, unspecified
CPT/HCPCS: 36415; 80053; 80061; 83036; 83721; 84439; 84443; 84481; 85025

== ENCOUNTER 2020-04-17 07:29 | Outpatient (CLI) | payer MEDICARE, BC | END 2020-04-17 07:30 | disposition EMS.NT | LOC: EMS 07:29 | PROVIDERS: ATTEND Surgery | DX: R41.82 Altered mental status, unspecified (principal) ==

== ENCOUNTER 2020-04-17 18:05 | Outpatient (CLI) | payer MEDICARE, BC | END 2020-04-17 18:06 | disposition E | LOC: EMS 18:05 | PROVIDERS: ATTEND Surgery ==